=== PATIENT | female | born 1945 | race Caucasian/White ===

== ENCOUNTER 2017-04-20 12:15 | Inpatient (IN) | payer MEDICARE, MEDICAID ==
[2017-04-20] VITALS (10 sets, daily range): BP systolic 68–101; BP diastolic 33–71; PULSE 41–62; RESP 15–19; O2SAT 85–98
[~2017-04-20] VITALS: Ht 167.6 cm; Wt 61.4 kg
[~2017-04-20 12:15] MED LIST: CALC1CAP26 PO; Etomidate 2 mg/mL 20 mL Inj IV ONE; HYDR1TAB91 PO; MAGN250T29 PO; MULT-895 PO; Succinylcholine Chloride 20 mg/mL 5 mL Inj ONE; THI100 PO; ZLP5T PO
--- NOTE | 2017-04-20 12:23 | ED.REPORT ---
HPI-Overdose/Alcohol Toxicity Date of Service Apr 20, 2017 ED Provider: Alphonso Torres MD Pt is a 71 year old female with a history of seizures, COPD, and stroke who presents to the ED via EMS after overdosing on approximately 800 mg of Amlodipine around 11:00 today. Pt c/o associated nausea, but states that she feels nauseated chronically. She reports that she told her that she overdosed, who ended up calling EMS. The pt admits to suicidal ideation when she overdosed, stating "I just felt tired of being sick." Pt denies alcohol use and smoking within the past 4 months. Nursing Notes Stated Complaint: OVERDOSE Chief Complaint: Psychiatric Complaint Nursing Notes Reviewed: Yes Allergies: Coded Allergies: acetaminophen (Verified Allergy, Unknown, UNKNOWN (PT CURRENTLY TAKING) , 04/20/17) hydrocodone bitartrate (Verified Allergy, Unknown, UNKNOWN (PT CURRENTLY TAKING), 04/20/17) General Time Seen by Provider: 12:23 Chief Complaint Drug overdose Modifying Factors: Intentional Hx Obtained From: Patient, EMS Arrived By: Ambulance Onset Occurred: 1 - 4 hours ago (11:00) Symptom Duration: Since onset Severity: Current: No pain currently Severity: Maximum: No pain Recent Healthcare: No recent doctor visit, No recent hospitalization Similar Sx Previous: No Risk-Overdose/Alcohol Tox )( Suicide Risk Stratification No: Alcohol use, Substance abuse RF Statements: Risk factors reviewed Past Medical History Past Medical History Anxiety Pneumonia UTI Seizures Reports: Asthma, COPD, Stroke Past Surgical History ovarian surgery Reports: Appendectomy, Tonsillectomy Family History none reported Smoking History Former Smoker Social History Alcohol Use: Denies alcohol use Drug Use: Denies drug use Other Social History: Good social support, Ambulatory Status Independent Review of Systems Constitutional: Denies: Fever Respiratory: Denies: Shortness of breath Cardiovascular: Denies: Chest pain GI: Reports: Nausea, Denies: Abdominal pain Complete sys rev & neg: except as marked. Physical Exam Initial Vital Signs Vital Signs (First) Date Time Temp Pulse Resp B/P Pulse Ox O2 Delivery O2 Flow Rate FiO2 04/20/17 12:14 37 62 17 77/33 93 Room Air 04/20/17 13:01 2 Initial VS: Reviewed Head / Eyes: Atraumatic, Normocephalic Neck: Supple, Full range of motion Extremities: Vascular intact, Neuro intact Skin: Warm, Dry, No cyanosis General/Constitutional: Awake, Alert Respiratory / Chest: Atraumatic, Breath sounds NL, Breath sounds = bilat Cardiovascular: Regular rhythm, Heart sounds NL Heart Rate / Rhythm: Positive: Bradycardia Hypotensive Abdomen: Atraumatic, Soft, Non-tender Neurologic: Speech NL, CN II - XII intact Abnormal Mood/Affect: Positive: Depressed Withdrawn and suicidal. Interpretation & Diagnostics Lab Results Interpretation Result Diagram: 04/20/17 1210 04/20/17 1444 Test 04/20/17 12:10 04/20/17 14:00 04/20/17 14:44 White Blood Count 9.7th/mm3 (3.8-10.1) Red Blood Count 5.36mil/mm3 (3.90-5.20) Hemoglobin 16.3g/dL (12.0-15.6) Hematocrit 46.5% (35.0-46.0) Mean Corpuscular Volume 86.8fL (81-100) Mean Corpuscular Hemoglobin 30.4pg (27.0-35.0) Mean Corpuscular Hemoglobin Concent 35.1% (32.0-37.0) Red Cell Distribution Width 13.4% (12.3-15.4) Platelet Count 364bil/L (150-400) Magnesium Level 1.7mg/dL (1.6-2.6) Total Bilirubin 0.3mg/dL (0.0-1.2) Aspartate Amino Transf (AST/SGOT) 22U/L (0-50) Alanine Aminotransferase (ALT/SGPT) 13U/L (0-32) Alkaline Phosphatase 81U/L (25-165) Total Protein 8.4g/dL (6.4-8.4) Albumin 4.7g/dL (3.4-5.0) Digoxin Level < 0.3nG/mL (0.9-2.0) Salicylates Level 25.0ug/mL (30-250) Acetaminophen Level < 15.0ug/mL Rx (10-25) Alcohols < 10mg/dL (0-10) Sodium Level 133mEq/L (134-144) Chloride Level 96mEq/L (97-108) Carbon Dioxide Level 22mmol/L (18-29) Blood Urea Nitrogen 7mg/dL (8-27) Creatinine 1.08mg/dL (0.57-1.00) Estimat Glomerular Filtration Rate 71mL/min (>59) Glucose Level 197mg/dL (60-99) Calcium Level 10.7mg/dL (8.5-10.1) Potassium Level 2.9mEq/L (3.5-5.2) ECG Interpretation ECG Interpretation: Sinus bradycardia with a rate of 44 IRBBB and LPFB Time: 12:49 Interpreted by: ED physician Procedures Central Line Placement Central Line Placement Note: Initial blood sugar - 138 Time: 13:10 Procedure Performed by: ED physician Consent / Setup / Site Prep: Consent from patient, Time-out performed (13:22 ), Needle aspirate performed, Pulse oximeter applied, pvc monitor applied, Hand hygiene observed, Standard surgical scrub, Max barrier precaution, Sterile drapes applied, Position supine Skin Preparation Agent: Hibiclens - Chlorhexidine Local Anesthesia: Lidocaine 1% Side / Location / Ultrasound: Internal jugular right, Ultrasound assisted Catheter / Lumen / Technique: Triple lumen, Seldinger technique Central Line Tip Location: Cath tip good position in the SVC Post-Procedure / Complications: Antibiotic oint applied, Dressing placed, Tolerated procedure well, Patient stable Intubation Intubation Procedure: Blood pressure - 93/41 Time: 14:37 Procedure Performed by: ED physician Consent / Setup / Site Prep: No consent - emergent, Time-out performed, Oxygen administered, Pulse oximeter applied, pvc monitor applied, Hand hygiene observed, Stand sterile technique Patient Position: Sniff position Blade / ET Tube / Route: Orange scope, ET tube cuffed (7.5), Route: oral Procedural Sedation/Analgesia: Sedation: Etomidate (20 mg at 14:39) Neuromuscular Agent: Succinylcholine ET Confirmation: Direct visualization, BS equal, End tidal CO2 device, CXR Secured / Marked: ET tube device Complications: None Re-Eval/Medical Decision Med Decision/Clinical Course Upon arrival and understood immediately that this was a critical situation and that this woman was in grave danger from the overdose. Information from [facility] was a received prior to the patient's arrival as to how best to manage competitions associated with amlodipine overdose. Immediately we initiated calcium followed by insulin and glucose. Her potassium was somewhat low to begin with so we were careful to monitor her potassium levels frequently. I made it clear to her and her that though she was initially doing reasonably well, ago she took was exceedingly dangerous and it may very well be life ending. I consult the critical care team immediately they have been involved with the case specifically Dr. Maria, I also consult to Dr. Woo from cardiology to consider transcutaneous or temporary pacing as needed. I spoke with Dr. Inocente Burnett from [facility] who is the lithographic platemaker material liaison who recommended making sure that we were on high-dose insulin and a whole bowel irrigation with GoLYTELY antibiotic consider also a fat emulsion therapy as well. I relayed all this information Dr. Maria. He will be assuming primary care of the patient current time is 3: 26 PM. Source of Hx: Old records Re-Evaluation/Progress #1: Time of Eval: 12:31 Re-Evaluation/Progress Note: Informed pt of plan for treatment and admission. Pt understands and agrees with plan for treatment and admission. All questions addressed. Re-Evaluation/Progress #2: Time of Eval: 12:59 Re-Evaluation/Progress Note: Pt rechecked. Informed pt of plan for central line placement. Pt understands and agrees with plan for central line placement. All questions addressed. Re-Evaluation/Progress #3: Time of Eval: 13:49 Re-Evaluation/Progress Note: Pt rechecked. All questions addressed. Re-Evaluation/Progress #4: Time of Eval: 13:50 Re-Evaluation/Progress Note: Spoke with pt's over phone. Discussed pt's case, treatment, and plan for admission. All questions addressed. Re-Evaluation/Progress #5: Time of Eval: 14:29 Re-Evaluation/Progress Note: Pt rechecked. Code blue was called, but resolved shortly. Re-Evaluation/Progress #6: Time of Eval: 14:36 Re-Evaluation/Progress Note: Pt rechecked. Pt required intubation. Re-Evaluation/Progress #7: Time of Eval: 14:54 Re-Evaluation/Progress Note: Pt rechecked. Code blue was called as the pt was pulseless. Re-Evaluation/Progress #8: Time of Eval: 14:59 Re-Evaluation/Progress Note: Pt rechecked. CPR was still in progress and stopped at 2 minutes. Pt's pulse was checked and was present. Re-Evaluation/Progress #9: Time of Eval: 15:02 Re-Evaluation/Progress Note: Pt rechecked with Dr. Maria and Dr. Woo. Consultation #1: Referral / Consult Name: Keith Maria MD Consulted With: Hospitalist Call Returned at: 13:34 Corrugator: Will see patient, Agrees with eval, Agrees with plan, Accepts admit Note: Consulted with Dr. Maria. We discussed the pt's case in person. Consultation #2: Referral / Consult Name: Min Woo MD Consulted With: Cardiology Call Returned at: 15:56 Corrugator: Will see patient, Agrees with eval, Agrees with plan Consultation #3: Referral / Consult Name: Min Woo MD Consulted With: Cardiology Call Returned at: 15:02 Note: Discussed pt's case in person. Dr. Woo saw the pt at bedside. Counseled Regarding: Diagnosis, Lab results, Need for admission Discharge & Departure Impression: Primary Impression: Suicidal overdose Encounter type: initial encounter Qualified Code: T50.902A - Poisoning by unspecified drugs, medicaments and biological substances, intentional self-harm , initial encounter Disposition: ADMITTED TO HOSPITAL Discharge Condition All VS Reviewed: Yes Condition: Stable Referrals: Annalee Martinez (PCP) Crit Care Except Billable Proc Time Spent: 75-104 minutes Services Performed: Patient management by me, Time spent at bedside, Reviewing test results, Reviewing imaging, Discussing patient care, Documentation in record, Time with fam/surrogate Scribe Attestation Portions of this note were transcribed by Tatiana Lopez. I, Dr. Torres personally performed the history, physical exam and medical decision-making; I reviewed and confirmed the accuracy of the information in the transcribed note. Signed by: Hoonrio Iverson, 04/20/17. copies to: Annalee Martinez Kirk H MD Apr 20, 2017 12:23 Tatiana Marcus Apr 20, 2017 12:33
[2017-04-20] MEDS ORDERED: 0.9% Sodium Chloride 1,000 ML IV ONE (12:35)
[2017-04-20] MEDS ORDERED: Calcium Chl 10% 1 Gm/10 mL Syringe IVPUSH ONE (12:55)
[2017-04-20] MEDS ORDERED: D5W1/2NS 1,000 mL IV PRN (12:55)
[2017-04-20 12:59] LABS: Mean Corpuscular Hemoglobin 30.4 pg (27.0-35.0); Mean Corpuscular Volume 86.8 fL (81-100)
[2017-04-20] MEDS ORDERED: CALCIUM CHLORIDE IV ONE (13:00)
[2017-04-20] MEDS ORDERED: [UNRECOGNIZED DRUG - OTHER] IV ONE (13:00)
[2017-04-20] MEDS ORDERED: Insulin Human REGular 300 Unit/3 mL Inj IV ONE (13:00)
[2017-04-20] MEDS ORDERED: Ondansetron 2 mg/mL 2 mL Inj ONE (13:04)
[2017-04-20] MEDS: Insulin Human REGular 100 Units/100 mL NS IV SCH ×4 (13:30→17:07)
--- NOTE | 2017-04-20 13:54 | DRSVH ---
PROCEDURE: X-RAY CHEST ONE VIEW, PORTABLE ([id number]) INDICATIONS: post central line TECHNIQUE: One view of the chest was acquired. COMPARISON: [facility], CR, XR CHEST 2VW, 11/27/2015, 14:30. FINDINGS: Surgical changes and devices: Gasless placement of right central venous catheter with the tip project ing in the lower SVC Lungs and pleura: No pleural effusions or pneumothorax. Lungs are clear. Diffuse scarring/atelectas is. Mediastinum: Mediastinal contours appear normal. Heart size is normal. Bones and chest wall: No suspicious bony lesions. Overlying soft tissues appear unremarkable. Mult iple chronic right rib fractures. IMPRESSION: Status post placement of right internal jugular central venous catheter with the tip projecting in th e lower SVC. No pneumothorax. Dictated by: Darwin Washington M.D. on 04/20/2017 at 12:50 Approved by: Darwin Washington M.D. on 04/20/2017 at 12:53
[2017-04-20] MEDS ORDERED: KCl 40 mEq/D5W 500 mL 40 MEQ in IV Premix 1 EACH IV STA (13:59)
[2017-04-20] MEDS ORDERED: Alum-Mag Hydrox-Simeth 30 mL Suspension PO PRN (14:00)
[2017-04-20] MEDS ORDERED: Senna-Docusate 8.6-50 mg Tablet PO PRN (14:00)
[2017-04-20] MEDS ORDERED: Polyethylene Glycol (PEG) 17 Gm Powder PO PRN (14:00)
[2017-04-20] MEDS ORDERED: Ondansetron 2 mg/mL 2 mL Inj IVPUSH PRN (14:00)
[2017-04-20] MEDS ORDERED: Potassium Chloride Inj 30 MEQ in Dextrose 5% 100 ML IV ONE (14:05)
[2017-04-20] MEDS ORDERED: [UNRECOGNIZED DRUG - OTHER] IV SCH (14:50)
[2017-04-20] MEDS ORDERED: LORAZEPAM IV SCH (14:50)
[2017-04-20] MEDS ORDERED: LORazepam 100 mg/100 mL NS 100 MG in IV Premix 1 EACH IV SCH (14:55)
[2017-04-20] MEDS: Norepinephrine 8,000 mCg/250 mL D5W Premix IV SCH ×4 (15:05→23:05)
[2017-04-20] MEDS: LORazepam Inj 100 MG in 0.9% Sodium Chloride 50 ML IV SCH (15:06)
[2017-04-20] MEDS ORDERED: Glucagon 1 mg/mL Inj ONE (15:10)
[2017-04-20] MEDS ORDERED: Succinylcholine Chloride 20 mg/mL 5 mL Inj ONE (15:10)
[2017-04-20] MEDS ORDERED: Etomidate 2 mg/mL 20 mL Inj IV ONE ×2 (15:10→16:25)
[2017-04-20] MEDS ORDERED: MULT-1065 PO (15:21)
[2017-04-20] MEDS ORDERED: LACO200T2 PO (15:21)
[2017-04-20] MEDS ORDERED: AMLO10TA3 PO (15:21)
[2017-04-20] MEDS ORDERED: ALBU18HF INH (15:21)
[2017-04-20] MEDS ORDERED: CARV25TA2 PO (15:21)
[2017-04-20] MEDS ORDERED: IBAN150T8 PO (15:21)
[2017-04-20] MEDS ORDERED: ASPI325T32 PO (15:21)
[2017-04-20] MEDS ORDERED: LEVE500T3 PO (15:21)
[2017-04-20] MEDS ORDERED: ATRINH INH (15:21)
[2017-04-20] MEDS ORDERED: DOPamine 800 mg/250 mL D5W Premix IV ONE (15:29)
[2017-04-20] MEDS ORDERED: PEG/Electrolytes 4,000 mL Solution PO ONE (15:30)
[2017-04-20] MEDS ORDERED: [UNRECOGNIZED DRUG - OTHER] IV ONE (15:50)
[2017-04-20] MEDS ORDERED: Glucagon 1 mg/mL Inj IV ONE (16:20)
[2017-04-20] MEDS ORDERED: Succinylcholine Chloride 20 mg/mL 5 mL Inj IVPUSH ONE (16:25)
[2017-04-20] MEDS ORDERED: PEG/Electrolytes 4,000 mL Solution TUBE ONE (16:25)
--- NOTE | 2017-04-20 17:34 | PCM.CHPMED ---
Subjective Date of Service: Apr 20, 2017 Primary Physician: Admitting Physician: Keith Maria MD Primary Care Physician: Annalee Martinez Attending Physician: Keith Maria MD Admit Status: From the Emergency Department, Admit to [facility] Team, Critical Care Chief Complaint: Chief Complaint: Reason for consult: hemodynamic instability History of Present Illness: Pulmonology Critical Care Consultation: Alaina Vega is a 71 year old female with a history of focal epilepsy, COPD, and stroke who was sent to the ED via EMS after overdosing on approximately 800 mg of Amlodipine around 11:00 am today. Patient is intubated and obtunded so history was obtained through her . According to her , patient was drinking coffee in the garden before she walked to him and stated that "I took all my pills." She then handed him an empty bottle of Amlodipine, which was recently refilled per the . The patient did not complain of any symptoms at that point, but her her was concerned so he called EMS. Patient does not have any history of anxiety or depression. Her denies any attempted suicide in the past or suicidal ideation recently. However, he notes that the patient has been upset that she cannot longer drive due to her seizure disorder. Her seizure seems to be uncontrolled with intermittent "small seizure " every 3 weeks with the last one a week ago. This usually involves shaking in her hands and are not associated with loss of consciousness. She is currently on Levetiracetem and Lacosamide for the seizure disorder. Patient's reports that she has not been smoking or drinking for the last 3-4 months. Upon arrival to the ED, patient was given calcium followed by insulin and glucose per recommendation from [facility]. Dr. Inocente Burnett from [facility] who is the microbiology technician operations expert who recommended to sure to use high-dose insulin and a whole bowel irrigation with GoLYTELY and charcoal. Her potassium was low and continued to trend down, currently at 2.9. Patient coded twice in the ER due to PEA with ROSC after CPR. She was intubated to protect her airway. Dr. Woo from cardiology was also consulted to consider transcutaneous or temporary pacing as needed. Her heart rate remains in the low 40s with hypotension MAP in the 50s. Patient was started on Norepinephrine and Dobutamine for pressure support. Recent labs reveal lactic acid 5.3, potassium 2.9, magnesium 1.7. Normal CBC and CXR. By the time the patient arrived to the floor, her heart rate decreased down to low 30s and thus a dose of Atropin 1mg IV was given. EKG at 1618 showed a sinus rhythm at 74 with incomplete right bundle-branch block and right axis deviation. Review of Systems: Unable to obtain due to the patient's condition. 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 Essential hypertension Chronic encephalopathy Vitamin B deficiency Late effect stroke Bedside Blood Glucose: 134 Surgical History Per history :ovarian surgery, Appendectomy, Tonsillectomy Home Medications Per [facility] Medication Name Directions amlodipine 5 mg tablet take 1 tablet by oral route every day aspirin 325 mg tablet,delayed release take 1 tablet by oral route every day Atrovent HFA 17 mcg/actuation aerosol inhaler inhale 2 puff by inhalation route 4 times every day CARVEDILOL 25 MG TABLET TAKE ONE TABLET BY MOUTH TWICE A DAY WITH FOOD Centrum Ultra Women's 18 mg-400 mcg Tab take 1 tablet by oral route every day with food Durable Medical Equipment ibandronate 150 mg tablet take 1 tablet by oral route every month on the same date; Take with a full glass of water and remain in an upright position for at least 60 minutes. KEPPRA 500 MG TABLET TAKE TWO TABLETS BY MOUTH TWICE A DAY potassium citrate ER 10 mEq (1,080 mg) tablet,extended release take 1 tablet by oral route every day with food. tramadol 50 mg tablet take 1 Tablet by ORAL route every 6 hours as needed VENTOLIN HFA 90 MCG INHALER INHALE TWO PUFFS BY MOUTH EVERY 4 TO 6 HOURS NEEDED FOR SHORTNESS OF BREATH VIMPAT 200 MG TABLET TAKE ONE TABLET (200MG) BY MOUTH TWICE A DAY Allergies: Coded Allergies: acetaminophen (Verified Allergy, Unknown, UNKNOWN (PT CURRENTLY TAKING) , 04/20/17) hydrocodone bitartrate (Verified Allergy, Unknown, UNKNOWN (PT CURRENTLY TAKING), 04/20/17) Family History Family History Patient's denies any known family history. Social History Hx Alcohol Use: Yes (LONG HX OF ETOH ABUSE, reports no drink for the past 4 months)Hx Substance Use: Yes (nothing other than alcohol)Hx Tobacco Use : No (trying to quit with nicotine patch/INTERMITTANTLY/quit smoking 3-4 months ago) Smoking Status: Former Smoker Living Arrangement: with Family Exam Vital Signs Vital Sign - Last Date Time Temp Pulse Resp B/P Pulse Ox O2 Delivery O2 Flow Rate FiO2 04/20/17 13:12 41 16 94/35 95 Nasal Cannula 2 04/20/17 12:14 37 Additional Information: General: chronically-ill appearance, intubated and obtunded. Head: Normocephalic, atraumatic. External ears without defect. Eyes: Pupils dilated, sluggish reaction to light. Anicteric sclerae, conjunctivae moist. Mouth: ET and OG tube in place. Cardiovascular: Bradycardia with regular rhythm. No murmurs, rubs, or gallops appreciated. Weak radial pulses. Pulmonary: Coarse breath sounds with no rales, wheezes, or rhonchi. Abdomen: Bowel tones present. Soft, nondistended, no apparent tenderness. Extremities: No clubbing, cyanosis, or edema. Skin: extremities are warm to touch, normal turgor and texture; no rash, ulcers , or subcutaneous nodules appreciated. Neurological: Unable to assess due to being intubated. No clonus. Lab and Diagnostics Result Diagram: 04/20/17 1210 04/20/17 1444 X-Rays, CTs and MRIs PROCEDURE: X-RAY CHEST ONE VIEW, PORTABLE Status post placement of right internal jugular central venous catheter with the tip projecting in the lower SVC. No pneumothorax. Dictated by: Darwin Washington M.D. on 04/20/2017 at 12:50 Assessment & Plan Assessment 71 year old female with a history of focal epilepsy, COPD, and stroke who was sent to the ED via EMS after overdosing on approximately 800 mg of Amlodipine and was intubated secondary to hemodynamic instability. Distributive shock secondary to severe Amlodipine toxicity, present on admission , active. -Patient presents with severe bradycardia and hypotension. -High dose insulin and dextrose ggt started in the ED. Will continue with the insulin drip and dextrose. -Serial BMP Q4 hours. -Per [facility]'s recommendation, Calcium Chloride is preferred. Will monitor Ca level and repeat Calcium Chloride boluses as needed. -Continue vasopressors with Norepi and Dopamine; will add Vasopressin to maximize blood pressure control. -Fentanyl IV pushes [id number] PRN agitation. -Atropine is rarely effective in serious poisoning, but can use as needed for severe bradycardia. Patient received one dose of 1mg IV and it was effective. -Patient received activated charcoal in the ED, but it was mostly suctioned out during intubation. Will attempt another gastric lavage now that patient is intubated. -Amlodipine half-life is about 30-50 hours, thus patient will need to be monitor closely in the next 48 hours. Cardiac arrest s/p resuscitation present on admission, now intubated. -Secondary to intentional amlodipine overdose. -Oxygenation and ventilation are appropriate on current vent settings. Continue with the current vent setting to maintain SpO2 >/= 93%. ABG pending. -Will need to contact cardiology for transcutaneous pacing if bradycardia worsens. Consent signed by the patient's in the chart. Hypokalemia, present on admission, active. -closely monitor potassium level on insulin drip. -Replete as needed. Keep Potassium >4 and Mg >2 Lactic acidosis, present on admission, active. -continue IVF and trend Lactate Focal epilepsy, chronic, presume stable. -Patient is currently on Lorazepam ggt. -will consider resuming her home Keppra and Vimpat tomorrow. Severe depression with suicidal attempt, present on admission, active. 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 Patient is on Famotidine for GI prophylaxis and Heparin for DVT prophylaxis. Problems: Pain Evaluation: Adequate Pain Control GI Prophylaxis: H2 blake VTE Prophylaxis: Sub-Q Heparin (Unfractionated) Resuscitation Status: CPR: Attempt Resuscitation Attending Statement I have seen and examined this patient with the resident physician. Vital signs , labs, imaging have been reviewed. I agree with the assessment and plan above. Please refer to my separately dictated progress note for any modifications to above. Corie Hardin M.D. Pulmonary and Critical Care medicine Pager [phone] Grabiel Mckeon DO Apr 20, 2017 16:31 Corie Hardin MD Apr 21, 2017 16:05
[2017-04-20 18:02] LABS: APPEARANCE,URINE CLEAR (CLEAR,HAZY); COLOR,URINE YELLOW (YELLOW)
[2017-04-20 18:03] LABS: OCCULT BLOOD,URINE SMALL (NEGATIVE); UROBILINOGEN,URINE NORMAL (NORMAL)
[2017-04-20] MEDS ORDERED: Calcium Chl 10% (Gm) Inj 2 GM in Dextrose 5% 250 ML IV ONE (18:15)
[2017-04-20] MEDS ORDERED: fentaNYL-PF 50 mCg/mL 2 mL Inj IVPUSH PRN (18:15)
[2017-04-20] MEDS: Heparin 5,000 Unit/mL Inj SUBQ SCH (18:21)
--- NOTE | 2017-04-20 18:21 | ABG ---
DateTimeAnalyzed 18:11:00 -_ pH ____7.345 - 7.350 7.450 pCO2 ___25.4__ -mmHg 35.0 45.0 pO2 153 -mmHg 69.0 116 HCO3- ___13.5__ -mmol/L 22.0 26.0 ABE __-10.3__ -mmol/L -2.0 2.0 tHb ___13.7__ -g/dL 12.0 18.0 O2Hb ___97.5__ -% COHb ____0.5__ -% 0.0 1.5 MetHb ____0.8__ -% 0.4 1.5 sO2 ___98.8__ -% FIO2 ___40.0__ -% PRVC 15 - PEEP ____5.0__ -cmH2O Vt __500.0__ -L Drawn By gj - Date/Time Notified____ 18:21:00 -_ Spontaneous_RR ___15.0__ -b/min Oxygen Device 1 VENTILATOR - Notified By gj - Notified Whom ___PARIMI - B 758 -mmHg tO2 ___19.0__ -Vol% Dougie test N/A -
--- NOTE | 2017-04-20 18:40 | PCM.PROC ---
Procedure Note Date of Service: Apr 20, 2017 Pre Procedure Diagnosis: Distributive shock due to Amlodipine overdose Post Procedure Diagnosis: Distributive shock due to Amlodipine overdose Procedure: Right radial arterial line placement Provider and Hairspring Setter: Haily Alcantara D.O. Indication for Procedure: Need for continuous blood pressure monitoring given distributive shock requiring intravenous pressor support Procedural Analgesia: 2 mL's of 1% lidocaine Procedure Details: A time-out was completed verifying correct patient, procedure, site, positioning , and special equipment if applicable. Allens test was performed bilaterally in both right and left upper extremities to ensure adequate perfusion. The patients left wrist was prepped with 1mL of 1 percent lidocaine to anesthetize the subcutaneous tissue and draped in sterile fashion. Under ultrasound guidance a 20G Arrow arterial line was introduced into the left wrist by Dr. Alcantara however no noted blood return through the catheter. Dr. Hardin took over the radial arterial line procedure and under ultrasound guidance a 20G Arrow arterial line was introduced into the left wrist with arterial blood flow however the arterial line catheter wire was unable to be threaded, the catheter was withdrawn and pressure was held for 5 minutes to ensure adequate time for hemostasis over the puncture site. The patients right wrist was then prepped with 1mL of 1 percent lidocaine to anesthetize the subcutaneous tissue and then draped in sterile fashion. Under ultrasound guidance a 20G Arrow arterial line was introduced into the right radial artery. The catheter was threaded over the guide wire and the needle was removed with appropriate pulsatile blood return. The catheter was then secured in place to the skin with a sterile Tegaderm arterial line dressing applied. Perfusion to the extremity distal to the point of catheter insertion was checked and found to be adequate. Dr. Hardin and Dr. Alcantara were present for the entire procedure. Estimated Blood Loss: 10mL The patient tolerated the procedure well and there were no complications. Post Procedure Plan: Continue pressor support with dopamine and norepinephrine, with consideration to add vasopressin Attending Statement Procedure: Right radial artery catheter placement under ultrasound guidance Indication: Hypotension and respiratory failure Date of service: 04/20/17 I was present for the entire procedure. Corie Hardin M.D. Pulmonary and Critical Care medicine Pager [phone] Johnson Alcantara DO Apr 20, 2017 18:40 Corie Hardin MD Apr 21, 2017 16:06
--- NOTE | 2017-04-20 19:03 | PCM.PROC ---
Procedure Note Date of Service: Apr 20, 2017 Pre Procedure Diagnosis: Distributive shock secondary to amlodipine overdose Post Procedure Diagnosis: Distributive shock secondary to amlodipine overdose Procedure: Endotracheal Intubation Provider and Shuttleless Loom Weaver: Dr. Melissa Alcantara Indication for Procedure: Cardiac arrest leading to inability to protect airway Procedural Analgesia: None Procedure Details: The patient was placed in a flat position. Sedation was obtained using Etomidate 20mg and paralysis was obtained with succinylcholine 100mg. The patient was easily ventilated using an ambu bag. The a GLIDESCOPE was used and inserted into the oropharynx at which time there was a clear view of the vocal cords. A 7.5-kittitian endotracheal tube was inserted and visualized going through the vocal cords. The stylette was removed. Breath sounds were heard in both lung jackson equally. The endotracheal tube was placed at 23 cm, measured at the teeth. Dr. Torres and Dr. Alcantara was present for the entire procedure. A chest x-ray was ordered to assess for pneumothorax and verify endotrachealtube placement. Estimated Blood Loss: 0mL The patient tolerated the procedure well and there were no complications. Post Procedure Plan: Sedated and ventilated the patient while maintaining blood pressure with intravenous pressor support Johnson Alcantara DO Apr 20, 2017 19:03
--- NOTE | 2017-04-20 19:17 | PCM.HPMED ---
Subjective Date of Service Apr 20, 2017 Primary Provider: Admitting Physician: Keith Maria MD Primary Care Physician: Annalee Martinez Attending Physician: Keith Maria MD Admit Status: From the Emergency Department Chief Complaint: Amlodipine overdose due to intentional suicide attempt History of Present Illness: Alaina Vega is a 71 year old female with a history of focal epilepsy, COPD, and stroke who presented to [facility] ED via EMS after intentionally overdosing on approximately 800 mg of Amlodipine around 11:00 am today. The patient was initially seen in the room and rapidly decompensated into a bradycardic arrhythmia leading to cardiac arrest and subsequent cardiopulmonary resuscitation with the Patient intubated and sedated on significant pressor support. The history was obtained through the ED physician's patient interview as well as her by the ICU resident. According to both the ED doctor as well as the the patient was having a normal morning drinking coffee in the garden when she walked up to the and told him that she intentionally took a full bottle of amlodipine that had recently been refilled because she was "tired of being sick." According to the the patient was not having any unusual symptoms however due to concern the patient's called EMS to have her transported to the [facility]. According to the the patient has a history of anxiety and depression however the denies any attempted suicide in the past or any recent suicidal ideation. 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 The describes the seizures as localized to her hands without loss of consciousness and typically occur every 3 weeks with the last one approximately one week ago. The patient is currently prescribed Keppra and Vimpat for her seizure disorder. Per the 's report the patient had recently stopped both smoking and drinking alcohol approximately 3-4 months ago. The patient has a history of chronic alcohol abuse prior to that. Per the ED physicians note he contacted [place] poison control and specifically Dr. Inocente Burnett a grinding operator and was guided to initiate IV insulin therapy with IV dextrose as well as IV calcium chloride. The patient was able to take activated charcoal and an attempt blind the undigested amlodipine. Patient coded twice in the ER due to PEA with noted bradycardic arrhythmia with ROSC after CPR. Given the bradycardic arrhythmia the insulin was briefly held while IV potassium chloride was being infused. She was intubated to protect her airway. Her potassium was initially mildly low and continued to trend down to 2.9. After the patient vomited a significant portion of the activated charcoal. In an attempt to stabilize the patient for transfer to ICU given the patient's emesis and OG was placed and the remaining gastric charcoal with suction. A whole bowel lavage was attempted with GoLYTELY. Dr. Woo from cardiology was also consulted to consider transcutaneous or temporary pacing as needed. Her heart rate remains in the low 40s with hypotension MAP in the 50s. Patient was started on Norepinephrine and Dobutamine for pressure support, with diecast machine operator Dr Hardin recommending to initiate vasopressin drip. On arrival to the ICU patient's heart rate decreased down to low 30s and thus a dose of Atropin 1mg IV was given. EKG at 1618 showed a sinus rhythm at 74 with incomplete right bundle-branch block and right axis deviation. Review of Systems: No review of systems was able to be obtained due to patient condition. Allergies Coded Allergies: acetaminophen (Verified Allergy, Unknown, UNKNOWN (PT CURRENTLY TAKING) , 04/20/17) hydrocodone bitartrate (Verified Allergy, Unknown, UNKNOWN (PT CURRENTLY TAKING), 04/20/17) Home Medications Amlodipine 5 mg daily Aspirin 325 mg taken daily Atrovent 2 puffs by inhalation up to 4 times every day Carvedilol 25 mg tablet taken twice a day Keppra 1000 mg twice a day Potassium citrate ER 10 mEq daily Tramadol 50 mg tablet every 6 hours Ventolin HFA inhaled 2 puffs by mouth every 4-6 hours as needed for shortness of breath Vimpat 200 mg tablet take 1 tablet by mouth twice a day Ibandronate 150 mg taken once monthly PMH Carotid artery stenosis 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 Patient's denies any known family history. Social History Occupation: not working Hx Alcohol Use: Yes (reports quit in December 2016) Hx Substance Use: No (nothing other than alcohol) Hx Tobacco Use: Yes (trying to quit with nicotine patch/INTERMITTANTLY/quit smoking 3-4 months ago) Smoking Status: Former Smoker Years of Smokin Living Arrangement: with Family Exam Vital Signs Vital Sign - Last Date Time Temp Pulse Resp B/P Pulse Ox O2 Delivery O2 Flow Rate FiO2 04/20/17 13:12 41 16 94/35 95 Nasal Cannula 2 04/20/17 12:14 37 Exam General: Chronically ill-appearing elderly female initially alert and cooperative however rapidly deteriorated with multiple cardiac arrests leading to emergent resuscitation and intubation within 3 minutes of entering the room Eyes: Pupils equal round and reactive to light, anicteric sclera, noninjected conjunctiva HENT: Normocephalic atraumatic, moist mucous membranes without central cyanosis , oropharynx clear without purulent exudate and kaleidoscope exam prior to ET tube placement poor dentition noted Neck: Supple, trachea midline, without thyromegaly or JVD Cardiovascular: Irregularly irregular rate and rhythm with severe noted bradycardia, S1-S2 present, without murmurs rubs or gallops noted Lungs: Clear to auscultation bilaterally without wheezing rales or rhonchi Abdomen: Soft, nondistended, tympanic to percussion, normal active bowel sounds , without organomegaly Extremities: No cyanosis clubbing or edema noted, pulses intact bilaterally at dorsalis pedis and radial : Lopez catheter in place Skin: Cool and dry Neuro: Nonfocal neurologic exam on initial impression, unable to assess after deterioration Psych: Flat affect and depressed mood initially unable to assess at deterioration Lab and Diagnostics Result Diagram: 04/20/17 1210 04/20/17 1444 X-Rays, CTs and MRIs X-RAY CHEST ONE VIEW, PORTABLE IMPRESSION:Status post placement of right internal jugular central venous catheter with the tip projecting in the lower SVC. No pneumothorax. Approved by: Darwin Washington M.D. on 04/20/2017 at 12:53 Assessment & Plan Alaina Vega is a 71 year old female with a history of focal epilepsy, COPD, and stroke who presented to [facility] ED via EMS after intentionally overdosing on approximately 800 mg of Amlodipine around 11:00 am today. Severe amlodipine toxicity secondary to Intentional overdose - Amlodipine 800 mg taken at Approximately 11 AM - In the ED the patient was given IV calcium chloride as well as started on IV insulin and dextrose per recommendations from [place] poison control, and a central line was placed given expected difficulty controlling both blood pressure and heart rate - The patient was given a dose of activated charcoal and attempt to bind undigested amlodipine - In the ED the patient acutely decompensated requiring ACLS resuscitation with CPR and endotracheal intubation with spontaneous return of circulation regained 2 - Given EMERGENCY MEDCL EMT with noted bradycardia arrhythmia and labs consistent with mild hypokalemia prior to initiating IV insulin, insulin was held temporarily wall IV potassium was started - 2 dose of glucagon given - The patient was initially placed on a norepinephrine drip which was continued until admitted into the ICU - Given the significant issues with bradycardia Dr. Woo of cardiology was consulted for possible transvenous pacing and after lengthy discussion the patient was instead placed on a dopamine drip with significant improvement in both pressure and heart rate - The patient remains hypotensive while on max dose norepinephrine and moderate doses of dopamine, after extensive discussion with diecast machine operator Dr. Hardin, the patient was continued on both norepinephrine and dopamine with the addition of vasopressin - Whole bowel lavage with GoLYTELY and an attempt to speed along the expulsion of undigested amlodipine - Continue insulin drip and dextrose - 1 dose of atropine given with significant improvement in heart rate, atropine available when necessary as well as glucagon - Consideration for lipid emulsion therapy with any further deterioration in blood pressure, however once this is initiated no further lab evaluation will be accurate so this will be held - Fentanyl IV pushes every 15 minutes when necessary for agitation - Lorazepam drip for both sedation and seizure prophylaxis given patient history - The patient's prognosis is guarded however psychiatry will be consulted if she makes it through the ICU stay History of partial seizures - Patient takes Vimpat 200 mg twice daily as well as Keppra 1000 mg twice daily - Currently holding both outpatient medications - Lorazepam drip for sedation should help with seizure prophylaxis DVT prophylaxis: Heparin 5000 units 3 times a day GI prophylaxis: Famotidine IV twice a day CODE STATUS is full this was discussed with the patient's given her tenuous prognosis The patient was admitted to the ICU with expected length of stay greater than 2 midnights given presenting symptoms, likely diagnosis, possible complications, and required treatments expected. Pain Evaluation: Adequate Pain Control GI Prophylaxis: H2 blake VTE Prophylaxis: Sub-Q Heparin (Unfractionated) Resuscitation Status: CPR: Attempt Resuscitation Attending Statement Greater than 30 minutes of critical care time provided. The patient was seen and examined together with Dr. Alcantara on 04/20/2017 and I agree with the history, exam and plan as outlined in the note above. . Johnson Alcantara DO Apr 20, 2017 19:17 Keith Maria MD Apr 22, 2017 16:13
--- NOTE | 2017-04-20 19:18 | NUR ---
Admit Patient brought to floor from ED around 1630 on Ventilator at 40%. On Dopamine, Norepinephrine, Potassium, Ativan, NS drips. Upon arrival to unit, an insulin gtt was started at 0.5 u/kg/hr as ordered. With decreasing BP, Dopamine was increased from 10 mcgs to 15 and then 20. Vasopressin ordered, but not received until change of shift. Noc shift RN to start. Maps running in the 50s at change of shift. Colyte prep being lavaged into OGT as per MD orders. No stool upon shift change. Blood sugars 227 and then 254. Ativan gtt increased to 4 mg/hr due to continued wakening by patient during arterial line placement. Also gave 2 mg Versed during art line placement>> patient waking and moving. Minimal UOP, unmeasurable. MD aware. Tele SB-SR. Gave one dose of atropine for severe bradycardia once arrived onto unit. Patient with crash cart pads attached in the event of a code. Report to noc shift RN bedside rounding done.
[2017-04-20] MEDS: Vasopressin Inj 20 UNIT in 0.9% Sodium Chloride 100 ML IV SCH ×2 (19:29→20:12)
--- NOTE | 2017-04-20 19:31 | DRSVH ---
PROCEDURE: X-RAY CHEST ONE VIEW, PORTABLE ([id number]) INDICATIONS: post intubation TECHNIQUE: One view of the chest was acquired. COMPARISON: [facility], CR, XR CHEST 1VW (PORTABLE), 04/20/2017, 13:28. FINDINGS: Surgical changes and devices: Right central venous catheter is unchanged. Endotracheal tube is placed with distal tip approximately 1.5 cm superior to the trey. Nasogastric tube is present with distal tip projecting below the left hemidiaphragm. Lungs and pleura: An overall appearance of increased pulmonary vascularity is present. Mediastinum: Mediastinal contours appear normal. Heart size is normal. Bones and chest wall: No suspicious bony lesions. Overlying soft tissues appear unremarkable. IMPRESSION: Support lines as above. Mild increased pulmonary vascularity suggestive of edema. Dictated by: Lilo Stapleton M.D. on 04/20/2017 at 19:29 Approved by: Lilo Stapleton M.D. on 04/20/2017 at 19:30
[2017-04-20 20:21] LABS: Magnesium 1.2 mg/dL (1.6-2.6)
[2017-04-20] MEDS ORDERED: Potassium Phos (mEq) Inj 40 MEQ in Dextrose 5% 500 ML IV ONE (20:25)
[2017-04-20] MEDS ORDERED: Magnesium Sulf 4 Gm/100 mL H2O 4 GM in IV Premix 1 EACH IV ONE (20:25)
--- NOTE | 2017-04-20 20:33 | ABG ---
DateTimeAnalyzed 20:24:30 -_ pH ____7.271 - 7.350 7.450 pCO2 ___30.1__ -mmHg 35.0 45.0 pO2 106 -mmHg 69.0 116 HCO3- ___13.9__ -mmol/L 22.0 26.0 ABE __-11.9__ -mmol/L -2.0 2.0 tHb ___13.5__ -g/dL 12.0 18.0 O2Hb ___96.9__ -% COHb ____1.8__ -% 0.0 1.5 MetHb ____0.0__ -% 0.4 1.5 sO2 ___98.5__ -% FIO2 ___30.0__ -% PRVC 15 - PEEP ____5.0__ -cmH2O Vt __500.0__ -L Drawn By AF - Date/Time Notified____ 20:33:00 -_ Spontaneous_RR 15 -b/min Oxygen Device 1 VENTILATOR - Notified By AF - Notified Whom ___Dr. Fuimaono - K+ ____3.9__ -mmol/L 3.5 5.0 tO2 ___18.4__ -Vol% OrderingPhysicianInitials mf - Dougie test N/A -
[2017-04-20] MEDS ORDERED: [UNRECOGNIZED DRUG - OTHER] IV PRN (20:50)
[2017-04-20] MEDS ORDERED: Piperacillin-Tazo 3.375 Gm Inj 3.375 GM in Dextrose 5% Minibag Plus 50 ML IV ONE (21:15)
[2017-04-20] MEDS: Famotidine Inj 50 ML IV SCH (21:57)
--- NOTE | 2017-04-20 23:37 | PCM.PROC ---
Procedure Note Date of Service: Apr 20, 2017 Pre Procedure Diagnosis: Toxic encephalopathy due to amlodipine overdose Post Procedure Diagnosis: as above Procedure: Re-intubation Provider and Friend Of The Court: Dr. Jacob Vazquez Indication for Procedure: RT was unable to pass the suction catheter through the old ET tube apparatus post voluminous emesis, thus it was thought there must be a kink of obstruction in her ET tube and that it should be replaced. Procedural Analgesia: Fentanyl Lorazepam Succinyl choline Procedure Details: The patient was positioned in the sniff position with providers at the head of the bed and RT on hand for bag ventilation. Succinylcholine was administered to achieve pre procedural paralysis, a bougie was passed through the previous ET tube which was subsequently withdrawn over the bougie. However, attempts to pass a replacement ET tube were met with resistance such that the attempt had to be abandoned and bag mask ventilation re-initiated. The entire old ET tube and bougie were removed for better visualization and the patient was again positioned in the Sniff position with RT on hand to bag ventilate. A straight laryngoscope was utilized to establish visualization of the vocal cords, and a 7 italian ET tube was passed without difficulty past the cords. The balloon was then inflated and the tube was set to 22 cm measured at the teeth and secured in place by RT. Symmetrical chest rise was observed and the patient was oxygenating well post procedurally. Giovanny Vazquez DO Apr 20, 2017 23:37
[2017-04-21] VITALS (11 sets, daily range): BP systolic 67–115; BP diastolic 41–62; PULSE 48–70; RESP 15–18; O2SAT 95–100
[2017-04-21] MEDS: Heparin 5,000 Unit/mL Inj SUBQ SCH ×3 (00:01→16:54)
[2017-04-21] MEDS: Vasopressin Inj 20 UNIT in 0.9% Sodium Chloride 100 ML IV SCH ×2 (00:17→21:22)
[2017-04-21] MEDS: Insulin Human REGular 100 Units/100 mL NS IV SCH ×24 (00:18→21:24)
[2017-04-21] MEDS: 0.9% Sodium Chloride 1,000 ML IV SCH ×3 (00:21→07:52)
[2017-04-21] MEDS: Chlorhexidine 0.12% 15 mL Oral Solution MUC_MEMBRM SCH ×6 (00:23→20:28)
[2017-04-21] MEDS: Norepinephrine 8,000 mCg/250 mL D5W Premix IV SCH ×4 (02:01→19:32)
--- NOTE | 2017-04-21 04:54 | NUR ---
P) Cardiac/Respiratory/GI/ Pt. sedated lightly and on 3 pressors, cardiac rhythm bradycardic initially with what appeared to be a 3rd degree block, now appears to be a 1st degree with P wave buried in T wave. Multifocal PVC's, rate consistently in the 50's, peripheral pulses remain weak with some mottling of her feet. Extremeties cool to touch. Lungs with coarse breath sounds, decreases bilat. unable to pass suction catheter through ET tube after pt. vomited, ET tube replaced by Dr. Garber. Per above I had been giving pt. go-lyte prep through OG, she had hypoactive bowel tones and vomited a large amount of clear fluid with charcoal specks, GI prep discontinued per Dr. Vazquez and pt. put on continuous suction via OG, 600ml out right away. Pt. also had a minimal amount of dark juan urine initially, once blood pressure stabilized with MAP over 60 urine output increased dramatically. I) Meds and labs per 's orders, turning 2h and floating heels. E) Currently resting quietly with eyes closed, wakes easily.
[2017-04-21 04:55] LABS: Magnesium 1.4 mg/dL (1.6-2.6)
[2017-04-21] MEDS ORDERED: Magnesium Sulf 4 Gm/100 mL H2O 4 GM in IV Premix 1 EACH IV ONE (05:10)
[2017-04-21] MEDS ORDERED: KCl 40 mEq/100 mL (CENTRAL) 40 MEQ in IV Premix 1 EACH IV ONE (05:10)
[2017-04-21] MEDS ORDERED: Potassium Phos (mEq) Inj 40 MEQ in Dextrose 5% 500 ML IV ONE (05:10)
[2017-04-21] MEDS: Piperacillin-Tazo 3.375 Gm Inj 3.375 GM in Dextrose 5% Minibag Plus 50 ML IV SCH ×2 (05:49→15:19)
[2017-04-21 07:11] LABS: BASOPHILS % (AUTO) 0.2 % (0-3); EOSINOPHILS % (AUTO) 0.3 % (0-5); MONOCYTES % (AUTO) 5.5 % (4-12); Mean Corpuscular Hemoglobin 30.8 pg (27.0-35.0); NEUTROPHILS % (AUTO) 82.6 % (40-74); Platelet Count 311 bil/L (150-400)
--- NOTE | 2017-04-21 07:12 | NUR ---
P) Jewelry Pt.'s rings removed as her hands were swelling, 4 rings, one with a stone missing, removed and placed in safe.
--- NOTE | 2017-04-21 08:06 | PCM.PNMED ---
Subjective Date of Service Apr 21, 2017 Subjective Pulmonology Critical Care Progress Note: Alaina Vega is a 71 year old female with a history of focal epilepsy, COPD, and stroke who was sent to the ED via EMS after overdosing on approximately 800 mg of Amlodipine around 11:00 am on 04/20/17. She was initially asymptomatic, but then developed cardiac arrest in the ER with ROSC after CPR. She was intubated and started on 3 vasopressors for marked distributive shock. ICU team have been asked to provide ventilator management while she requires intubation and ventilation. Hospital and Ventilation Day #2. Overnight, patient's potassium and magnesium levels continued to drop in spite of several doses of potassium and Magnesium. She was also given a bolus dose of lipid emulsion with no continuous infusion. Telemetry reports Multifocal PVC's with rate consistently in the 50's. Her blood pressure stabilized with MAP over 60 on maximum doses of three vasopressors. Her urine output increased dramatically overnight. In addition, nursing staff was unable to pass suction catheter through ET tube after patient vomited the Golytely prep so ET tube was replaced by ED doctor, Dr. Garber. This morning, lab draw was hold due to active infusion of potassium. Last labs showed blood sugar of 451 so her D10 was decreased from 150mls/hr to 100mls/hr. Potassium is still low at 2.4 and Magnesium of 1.4. Patient appears more obtunded with no spontaneous eye or extremity movement. Her pupils are dilated and fixed with no reaction to light. Extremities are cool to touch with very weak peripheral pulses. Exam Vital Signs Vital Sign - Last Date Time Temp Pulse Resp B/P Pulse Ox O2 Delivery O2 Flow Rate FiO2 04/21/17 04:33 36.4 58 15 114/46 100 Mechanical Ventilator 30 04/20/17 13:12 2 Intake and Output 04/20/17 04/20/17 04/21/17 Cumulative From/Thru 15:00 23:00 07:00 04/20/17 12:14 - 04/21/17 06:36 Intake Total 2000 ml 1974 ml 7827 ml 54366 ml Output Total 3300 ml 3300 ml Balance 2000 ml 1974 ml 4527 ml 8501 ml Intake Oral 360 ml 360 ml IV Total 2000 ml 1974 ml 7467 ml 86256 ml Output Urine Total 2150 ml 2150 ml Gastric Drainage Total 650 ml 650 ml Emesis 500 ml 500 ml Exam General: chronically-ill appearance, intubated and obtunded. Head: Normocephalic, atraumatic. External ears without defect. Eyes: Pupils dilated and fixed at 6mm bilaterally, no reaction to light. Anicteric sclerae, conjunctivae moist. Mouth: ET and OG tube in place. Cardiovascular: Bradycardia with regular rhythm. No murmurs, rubs, or gallops appreciated. Weak peripheral pulses. Cap refill ~2-3 sec Pulmonary: Coarse breath sounds with no rales, wheezes, or rhonchi. Abdomen: Decreased bowel tones. Soft, nondistended, no apparent tenderness. Extremities: No clubbing, cyanosis, or edema. Skin: extremities are cool to touch, normal turgor and texture; no rash, ulcers , or subcutaneous nodules appreciated. Neurological: Obtunded. Unable to follow commands or moving extremities. No withdrawal from pain stimuli. Negative Babinski's. No clonus. IVs and Medications Medications Reviewed: Medications were reviewed in detail Lab and Diagnostics Result Diagram: 04/21/17 0655 04/21/17 0430 X-Rays, CTs and MRIs X-RAY CHEST ONE VIEW, PORTABLE IMPRESSION:Status post placement of right internal jugular central venous catheter with the tip projecting in the lower SVC. No pneumothorax. Approved by: Darwin Wsahington M.D. on 04/20/2017 at 12:53 Assessment & Plan 71 year old female with a history of focal epilepsy, COPD, and stroke who was sent to the ED via EMS after intentional overdosing on approximately 800 mg of Amlodipine and was intubated secondary to cardiac arrest s/p resuscitation. Distributive shock secondary to severe Amlodipine toxicity, present on admission , active. -Patient requires maximum doses of 3 vasopressors (Norepi, Dopamine, and Vasopressin) to maintain MAP >65. Will add Dobutamine and decrease the doses of the other 3. -Continue high dose insulin and dextrose ggt. Goal BG around 100-200. -Will reinstitute another bolus of lipid emulsion after lab draw for CMP, Mg, and Phosphorus at 1200. The initial IV bolus should be 1.5ml/kg and followed immediately by a continuous infusion of 0.25mg/kg/min for roughly 10 min following recovery of vital signs. Can repeat 2 more boluses (maximum of 3 boluses) if cardiac stability has not been restored. Monitor vital signs every 15 minutes during the infusion. Lipid rsusciation therapy should be terminated after 1 hour or less if the patient's clinical status permits. Note that lipid emulsion will cause prolonged laboratory interference for over 20 hours. The exact duration of action is controversial (per NCBI). -Per [facility]'s recommendation, IV calcium infusions can he helpful but the response is often short-lived. Note that calcium dosing should be titrated to hemodynamic response rather than serum calcium concentration alone. Will monitor Ca level and repeat Calcium Chloride boluses as needed. -Will Dobutamine for pressure support and decrease the doses on the Norepi, Dopamine, and Vasopressin. -Fentanyl IV pushes [id number] available as needed agitation. -Vigileo monitor in place to closely assess hemodynamic parameters. -Given the patient's worsening neurological status today, will titrate down the Lorazepam drip. -Atropine is rarely effective in serious poisoning, but can use as needed for severe bradycardia. -Patient did not tolerate the charcoal lavage -Amlodipine half-life is about 30-50 hours, thus patient will need to be monitor closely in the next 30 hours. -Patient has vomited with the gastric lavage and given her hypoactive bowel tone , will hold off starting tube feeding at this point. -I discussed with the about the patient status yesterday and he confirmed the full code. However, given the patient's current critical condition on maximum vasopressors, will contact the for goals of care. Cardiac arrest s/p resuscitation present on admission, now intubated. -Secondary to intentional amlodipine overdose. -Oxygenation and ventilation are appropriate on current vent settings. Continue with the current vent setting to maintain SpO2 >/= 93%. -Yesterday ABG showed metabolic acidosis with pH 7.27, pCO2 30.1, pO2 106, bicarb 13.9. -Will need to contact cardiology for transcutaneous pacing if bradycardia worsens. Consent signed by the patient's in the chart. Suspected aspiration pneumonia, active. -WBC increased from 9.7 to 17.7 this morning with Procalcitonin elevated at 5. -CXR this morning showed increasing bibasilar diffuse groundglass opacities. No radiology report yet. -Continue empiric antibiotics with Zoxyn. Day #2. Hypokalemia, present on admission, active. -closely monitor potassium level on insulin drip. Lab values might not be accurate if patient is on lipid emulsion therapy. -Need to maintain Potassium of at least 2.8 and Mg >2. Replete as needed. -Monitor Telemetry and EKG as needed Lactic acidosis, present on admission, active. -continue IVF with D10 at 100mls/hr and trend Lactate. -Will stop NS at this point. -Monitor urine output. Focal epilepsy, chronic, presume stable. -Patient is currently on Lorazepam ggt for agitation as well as seizure prophylaxis. -Levetiracetam level pending. -will consider resuming her home Keppra and Vimpat once patient is more hemodynamically stable. Severe depression with suicidal attempt, present on admission, active. 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 Patient is on Famotidine for GI prophylaxis and Heparin for DVT prophylaxis. Pain Evaluation: Adequate Pain Control GI Prophylaxis: H2 blake VTE Prophylaxis: Sub-Q Heparin (Unfractionated) VTE Mechanical Devices: Intermittant Pneumatic CD Resuscitation Status: CPR: Attempt Resuscitation Attending Statement I have seen and examined this patient with the resident physician. Vital signs , labs, imaging have been reviewed. I agree with the assessment and plan above. Please refer to my separately dictated progress note for any modifications to above. Corie Hardin M.D. Pulmonary and Critical Care medicine Pager [phone] Grabiel Mckeon DO Apr 21, 2017 08:06 Corie Hardin MD Apr 21, 2017 16:09
[2017-04-21] MEDS ORDERED: SODIUM CHLORIDE ONE (08:13)
[2017-04-21] MEDS ORDERED: 0.9% Sodium Chloride 10 mL Inj ONE (08:13)
--- NOTE | 2017-04-21 08:23 | PROCED ---
[address] [address] PROCEDURE NOTE PATIENT: INOCENCIO POWERS : 1945 MR#: [id number] ADMIT: 04/20/2017 JOB ID: [id number] DATE OF SERVICE: 04/20/2017 POSTOPERATIVE DIAGNOSIS(ES): PREOPERATIVE DIAGNOSIS(ES): SURGEON: Jacob Garber MD PROCEDURE: Replacement of failed intubation endotracheal tube. I was called to the bedside by the director of medical services with a patient with a 7.5 tube functioning, but unable to accept a suction catheter. Suction was required after some vomiting episodes. Preparation was made for primary intubation and then a bougie employed to enter the trachea. That entered without difficulty, but another 7.5 tube was then unable to be passed past the cords. The bougie and tube were withdrawn and a #7 tube, previously prepared, was then placed under direct visualization. The resident physician attempted to visualize the cords and was unable. I then placed the 7 tube through the cords under direct visualization and confirmed by end-tidal CO2. Chest x-ray is now pending. The patient is ventilating well with saturations remaining in the 99 range. Patient tolerated the procedure well, and he is returned to the care of the intensive care unit team.
[2017-04-21] MEDS ORDERED: DOBUTamine 500 mg/250 D5W 500,000 MCG in IV Premix 1 EACH IV SCH (08:45)
[2017-04-21] MEDS: LORazepam Inj 100 MG in 0.9% Sodium Chloride 50 ML IV SCH (09:17)
--- NOTE | 2017-04-21 09:35 | CONS ---
[address] [address] CONSULTATION REPORT PATIENT: INOCENCIO POWERS : 1945 MR#: [id number] ADMIT: 04/20/2017 JOB ID: [id number] DATE OF SERVICE: 04/20/2017 PULMONARY CRITICAL CARE CONSULTATION NOTE: The patient is a 71-year-old woman admitted to the ICU for calcium channel blake overdose. Seen in consultation at the request of Dr. Maria for shock and acute respiratory failure. The patient was seen and evaluated with resident physician, Dr. Parvin Dunn. Please refer to her separate detailed note for complete information. The following is a brief attending note. HISTORY OF PRESENT ILLNESS: The patient has the history of longstanding cigarette use, seizure disorder, and apparently came up to her today and told him that she took a whole bottle worth of amlodipine tablets. Subsequently she was brought to the emergency department, intubated, and has been hypotensive. Attempts at giving her charcoal resulted in vomiting and so the charcoal was suctioned out. She is currently severely hypotensive on norepinephrine and dopamine, on the ventilator. PAST MEDICAL HISTORY: Notable for epilepsy, alcohol use, longstanding smoking history which she stopped a few months ago, and anxiety disorder. SOCIAL HISTORY: As above. Longstanding 30-40 pack-year smoking history reportedly. Please note past medical history, social history, family history, and review of systems could not be obtained from the patient because she was intubated. Refer to separate detailed note by resident for additional information. PHYSICAL EXAMINATION: Also refer to separate resident note. Vital signs she is bradycardic in the 40s previously and is currently in the 60s on dopamine. General agitated moving her limbs. Chest clear. Abdomen soft. Extremities no cyanosis or clubbing. LABORATORIES: Reviewed notable for potassium of 2.9. Imaging reviewed. This is preintubation and shows hyperinflated lungs which are clear. ASSESSMENT AND RECOMMENDATIONS: 1. Amlodipine overdose at 11 a.m. today--90 tablets of 5 mg. 2. Shock due to amlodipine overdose. 3. Acute hypoxic respiratory failure. 4. Suspected chronic obstructive pulmonary disease. 5. Severe bradycardia. This 71-year-old woman with prior smoking history presented today with intentional amlodipine overdose, resulting in severe bradycardia, hypotension, and respiratory failure. Activated charcoal was unsuccessful due to vomiting as described above. She is currently getting GoLYTELY through the feeding tube. She has norepinephrine at high dose, dopamine at 10 mcg and an Art-line placed. We are going to add vasopressin increase the dopamine rate for hypotension with maps around 50. Cardiology is aware of her and at this point, recommended against transvenous pacer. She is also getting an insulin infusion, has received multiple doses of Glucagon as well as IV calcium which we will repeat now. At this point, it is really going to be supportive management from a toxicology standpoint. She usually takes Keppra and Vimpat for her seizure disorder, which will hold tonight and probably be consider adding tomorrow. She is getting lorazepam infusion and fentanyl pushes p.r.n. She is on appropriate DVT and GI prophylaxis. She is a FULL CODE. CRITICAL CARE TIME: Sixty (60) minutes.
--- NOTE | 2017-04-21 10:25 | DRSVH ---
PROCEDURE: X-RAY CHEST ONE VIEW, PORTABLE ([id number]) INDICATIONS: tube placement TECHNIQUE: One view of the chest was acquired. COMPARISON: [facility], CR, XR CHEST 1VW (PORTABLE), 04/20/2017, 18:11. FINDINGS: Surgical changes and devices: Endotracheal tube with the tip projecting approximately 4 cm from the c adelita. Enteric tube is present with the tip beyond the gastroesophageal junction. There is a right in travenous catheter with the tip projecting in the lower SVC Lungs and pleura: Possible bilateral small layering pleural effusions solitary indeterminate. There a re increasing bibasilar diffuse groundglass opacities. No definite focal consolidation Mediastinum: Mediastinal contours appear normal. Heart size is normal. Bones and chest wall: No suspicious bony lesions. Overlying soft tissues appear unremarkable. IMPRESSION: Worsening pulmonary edema since earlier same day at 1811 hrs. Cannot exclude small layering bilateral pleural effusions. Support equipment as detailed above. Dictated by: Darwin Washington M.D. on 04/21/2017 at 9:21 Approved by: Darwin Washington M.D. on 04/21/2017 at 9:24
--- NOTE | 2017-04-21 10:52 | NUR ---
NUTRITION ASSESSMENT: ASSESS: Pt is a 71yo F admitted to CCU for amlodipine overdose and respiratory failure. Pt is currently intubated and sedated. Pt experienced multiple episodes of emesis overnight. At this point TF is not being started to monitor GI function. Labs are being replaced. PMHX: epilepsy, COPD, CVA, HTN, depression LABS: Reviewed. Na 122, K 2.4, CO2 7, Bun 7, Glu 451, phos 1.6, Mg 1.4, A1C 6.3 MEDS: Reviewed. Insulin, norepinephrine, Ativan GI: n/v, 0 BM SKIN: no major issues noted CURRENT WTS: 61.4kg, BMI 21.8kg/m2, admit wt: 59kg, IBW 59.1kg DIET: NPO EST. NEEDS: vent Kcals: 1230-1535kcal/day (20-25kcal/kg) Pro: 90-110g/day (1.5-1.8g/kg) Fluids: ~1535-1850ml/day (25-30ml/kg) NUTRITION DIAGNOSIS: 1.) Inadequate oral intake related to decreased ability to consume sufficient energy as evidenced by current NPO status NUTRITION INTERVENTION: 1.) Will continue to monitor NPO/GI status. If pt remains vented and NPO and GI is functional, recommend TF be started. Recommend Pulmocare start at 10ml/hr. If tolerated, advance by 10ml q 6 hrs until reach goal rate of 45ml/hr to provide 1485kcal and 62g pro (100% kcal and 68% pro needs). 2.) Recommend addition of 1 packet prosource TID to better meet protein needs once TF tolerated at goal rate. MONITOR / EVAL: NPO/vent, gi, labs, wt, POC, nutrition status. Will continue to monitor per high nutrition risk guidelines
[2017-04-21] MEDS: Famotidine Inj 50 ML IV SCH ×2 (10:56→20:28)
[2017-04-21] MEDS ORDERED: Calcium GLUCO 10% (Gm) Inj 4 GM in Dextrose 5% 100 ML IV ONE (11:00)
[2017-04-21] MEDS ORDERED: [UNRECOGNIZED DRUG - OTHER] IV SCH (11:30)
[2017-04-21] MEDS ORDERED: Atropine 1 mg/10 mL (Code) Syringe ONE (11:40)
[2017-04-21] MEDS ORDERED: ISOPROTERENOL IV PRN ×2 (11:50)
[2017-04-21] MEDS ORDERED: D5W IV PRN ×2 (11:50)
--- NOTE | 2017-04-21 13:08 | PROG NOTE ---
[address] [address] PROGRESS NOTE PATIENT: INOCENCIO POWERS : 1945 MR#: [id number] ADMIT: 04/20/2017 JOB ID: [id number] DATE: 04/21/2017 PULMONARY CRITICAL CARE PROGRESS NOTE: The patient was seen and evaluated with resident physician, Dr. Mckeon. Please refer to his separate detailed note for complete information. The patient is 71-year-old woman with a longstanding history of prior tobacco use, alcohol use, epilepsy admitted to the hospital with intentional amlodipine overdose, now with refractory shock, bradycardia and respiratory failure. INTERVAL HISTORY: Overnight, the patient has remained bradycardic, borderline low blood pressures on norepinephrine, dopamine, vasopressin at max doses in addition to insulin and dextrose infusions. This morning with the addition of dobutamine, her blood pressure and heart rate both dropped and this had to be stopped. PHYSICAL EXAMINATION: Notable for bradycardia with pulse around 40s to 60 max, BP 96/46. She is on 30% FiO2 on the vent. General: Sometimes moves her arms but does not follow commands. Pupils are dilated at 5 mm each. Chest: Clear to auscultation. LABORATORIES: Reviewed. WBC jumped up to 17.7 from 9.7. Chemistry could be inaccurate due to the recent lipid infusion. Sodium was 122 and potassium was 2.4. Procalcitonin is up to 5.7. ASSESSMENT AND RECOMMENDATIONS: 1. Acute amlodipine overdose on April 20, 2017. 2. Refractory shock. 3. Severe bradycardia. 4. Acute hypoxic respiratory failure. 5. Lactic acidosis. 6. Severe hypokalemia. This 71-year-old woman is critically ill after an amlodipine overdose, getting maximal medical therapy with dopamine infusion, norepinephrine, vasopressin, all maxed out. She is also getting insulin and dextrose infusions and has received lipid emulsion, calcium IV and atropine. Despite all of this, her hemodynamics seem to be worsening. I spoke with Cardiology and they recommended adding isoproterenol infusion and if this fails they would consider putting in a transvenous pacer. I spoke to her , Raffaele, who was at home today and cannot come in and he wants us to do everything possible but I recommended against CPR because she is essentially being constantly resuscitated on the current regimen. I informed him that she may not even survive the next few minutes and he understands and is planning on informing her daughter who lives in [place]. CRITICAL CARE TIME: 90 minutes.
[2017-04-21 13:36] LABS: Magnesium 2.5 mg/dL (1.6-2.6); Phosphorus 7.1 mg/dL (2.5-4.9)
[2017-04-21 13:44] LABS: BASOPHILS % (AUTO) 0.2 % (0-3); EOSINOPHILS % (AUTO) 0.3 % (0-5); MONOCYTES % (AUTO) 6.2 % (4-12); Mean Corpuscular Volume 85.5 fL (81-100); Platelet Count 284 bil/L (150-400)
[2017-04-21] MEDS: CALCIUM CHLORIDE IV SCH ×2 (14:50→20:29)
[2017-04-21] MEDS: DEXTROSE 5% IV SCH ×2 (14:50→20:29)
[2017-04-21] MEDS ORDERED: Heparin 10,000 Unit/1,000 mL NS Premix IV ONE (15:52)
--- NOTE | 2017-04-21 17:02 | DRSVH ---
PROCEDURE: X-RAY CHEST ONE VIEW, PORTABLE ([id number]) INDICATIONS: intubated TECHNIQUE: One view of the chest was acquired. COMPARISON: [facility], CR, XR CHEST 1VW (PORTABLE), 04/20/2017, 18:11. [facility], CR, XR CHEST 1VW (PORTABLE), 04/20/2017, 23:32. FINDINGS: Surgical changes and devices: Stable position of ETT, nasogastric tube and right IJ CVL. Transcutane ous temporary pacer lead projected over the right atrium. Lungs and pleura: Diffuse, widespread bilateral pulmonary interstitial and air space opacities are p resent similar to prior examination. Small pleural effusions noted bilaterally. No pneumothorax. Mediastinum: Mediastinal contours appear normal. Heart size is normal. Mitral annular calcificatio n redemonstrated. Bones and chest wall: No suspicious bony lesions. Overlying soft tissues appear unremarkable. IMPRESSION: 1. Stable support lines and tubes. 2. Pulmonary edema and/or diffuse bilateral pneumonia involving the lung bases not significantly vargas ged. 3. Trace pleural effusions. Dictated by: Gerald Magaña [facility] Interpreted: Lilo Stapleton MD on 04/21/2017 at 11:05 Approved by: Lilo Stapleton M.D. on 04/21/2017 at 17:00
--- NOTE | 2017-04-21 17:12 | NUR ---
Restraints discontinued Pt restraints discontinued at 0730hrs as pt is not making any effort to move
--- NOTE | 2017-04-21 17:13 | NUR ---
Pt daughter called in to speak with Nursing Pt's daughter Elvira, called in after being notified of her mother's admission to CCU. Pt's indicated it was OK to give info to pt's daughter. I updated Elvira on the seriousness of her Mother's condition and she advised me that she was on her way here to see her, travelling from [place].
[2017-04-21] MEDS ORDERED: Sodium Chloride LOK Flush 10 mL Syringe IVFLUSH PRN ×2 (17:15)
--- NOTE | 2017-04-21 17:15 | NUR ---
Pacemaker placed by with rd lab technician assist in pt room Pt had a temp pacemaker placed by Dr. Woo this afternoon. Right groin site is CDI. Pt tolerated the procedure well.
--- NOTE | 2017-04-21 17:51 | NUR ---
Social Work- Initial Assessment Data: See attached CM assessment. Pt is a 71 year old female admitted for amlodipine overdose per H&P. Pt's insurance is [facility] and [facility] Supp. Pt's PCP is TOÑO Kelley. Pt's readmit risk score is 5/8 high risk. Pt has no DPOA on file, pt's NOK is Raffaele Britton [phone]. Daughter Elvira Pacheco [phone] is contact as well. Pt is CCU status sedated and intubated. Pt not able to participate in assessment. Pt's not at bedside. T/C to pt's Raffaele to offer support, explained SW role. Pt resides in [place] with her , independent at baseline. Pt does not drive due to a seizure disorder. Pt uses no DME at baseline. Per , pt has no history of depression or anxiety. Pt's ended conversation abruptly as he was conserving battery on his cell phone and did not want to complete conversation. Unclear if pt has history of HH or SNF, LTC or VA benefits. SW will continue to reach out to offer family support and assist in discharge planning needs as indicated. Assessment: Pt who was previously independent with ADLs. Plan: SW will continue to reach out to offer family support and assist in discharge planning needs as indicated. DANIEL Robbins Addendum: 04/21/17 at 1757 by MADDY GOLDBERG SS Amended: Links added.
--- NOTE | 2017-04-21 18:00 | PCM.PNMED ---
Subjective Date of Service Apr 21, 2017 Subjective Subjective: Due to the patient being intubated and comatose, she was unable to participate in her care at this time Events Overnight: No acute events overnight. ROS: Due to the patient being intubated and comatose, a review of systems was unable to be obtained. Exam Vital Signs Vital Sign - Last Date Time Temp Pulse Resp B/P Pulse Ox O2 Delivery O2 Flow Rate FiO2 04/21/17 11:15 48 80/41 96 30 04/21/17 04:33 36.4 15 Mechanical Ventilator 04/20/17 13:12 2 Intake and Output 04/20/17 04/20/17 04/21/17 Cumulative From/Thru 15:00 23:00 07:00 04/20/17 12:14 - 04/21/17 06:36 Intake Total 2000 ml 1974 ml 7827 ml 26869 ml Output Total 3300 ml 3300 ml Balance 2000 ml 1974 ml 4527 ml 8501 ml Intake Oral 360 ml 360 ml IV Total 2000 ml 1974 ml 7467 ml 27060 ml Output Urine Total 2150 ml 2150 ml Gastric Drainage Total 650 ml 650 ml Emesis 500 ml 500 ml Exam General: No acute distress, intubated and sedated Eyes: Pupils equal round and reactive to light, anicteric sclera, noninjected conjunctiva HENT: Normocephalic atraumatic, moist mucous membranes without central cyanosis , oropharynx clear without purulent exudate Neck: Supple, trachea midline, without thyromegaly or JVD Cardiovascular: Irregularly irregular rate and rhythm with bradycardia, S1-S2 present, without murmurs rubs or gallops noted Lungs: Clear to auscultation bilaterally without wheezing rales or rhonchi Abdomen: Soft, nondistended, tympanic to percussion, normal active bowel sounds , without organomegaly Extremities: No cyanosis clubbing or edema noted, pulses intact bilaterally at dorsalis pedis and radial : Lopez catheter in place Neuro: Unable to assess Psych: Unable to assess IVs and Medications Medications Reviewed: Medications were reviewed in detail Lab and Diagnostics Result Diagram: 04/21/17 1250 04/21/17 1250 X-Rays, CTs and MRIs X-RAY CHEST ONE VIEW, PORTABLE IMPRESSION:Status post placement of right internal jugular central venous catheter with the tip projecting in the lower SVC. No pneumothorax. Approved by: Darwin Washington M.D. on 04/20/2017 at 12:53 Assessment & Plan 71 year old female with a history of focal epilepsy, COPD, and stroke who was sent to the ED via EMS after intentional overdosing on approximately 800 mg of Amlodipine and was intubated secondary to cardiac arrest s/p resuscitation. Distributive shock secondary to severe Amlodipine toxicity, present on admission , active. -Patient currently requiring 3 vasopressors (Norepi, Dopamine, and Vasopressin) to maintain MAP >65. Will add Dobutamine and decrease the doses of the other 3 as tolerated. -Continue high dose insulin and dextrose ggt. Goal BG around 100-200. -Continue lipid emulsions (maximum of 3 boluses) continue until cardiac stability has been restored. Monitor vital signs every 15 minutes during the infusion. Note: lipid emulsion will cause prolonged laboratory interference for over 20 hours. -Continue IV Calcium Chloride boluses as needed. -Fentanyl IV pushes [id number] available as needed agitation. -Vigileo monitor in place to closely assess hemodynamic parameters. -Given the patient's worsening neurological status today, will titrate down the Lorazepam drip. -Atropine as needed for severe bradycardia. Acute hypoxic hypercapnic respiratory failure secondary to Cardiac arrest s/p resuscitation, present on admission, stable. -Patient currently breathing well on current vent settings -ICU team to manage ventilation settings -Consider transcutaneous pacing for bradycardia. Suspected aspiration pneumonia, active. -WBC increased from 9.7 to 17.7 this morning with Procalcitonin elevated at 5. -CXR this morning showed increasing bibasilar diffuse groundglass opacities. -Continue empiric antibiotics with Zoxyn. Hypokalemia, present on admission, active. -closely monitor potassium level on insulin drip. Lab values might not be accurate if patient is on lipid emulsion therapy. -Need to maintain Potassium of at least 2.8 and Mg >2. Repeat as needed. -Monitor Telemetry and EKG as needed Lactic acidosis, present on admission, active. -continue IVF with D10 at 100mls/hr and trend Lactate. -Patient currently up to 11.5 L since admission -Will stop NS at this point. -Monitor urine output. History of Focal epilepsy, chronic, presume stable. -Patient is currently on Lorazepam ggt for agitation as well as seizure prophylaxis. -Levetiracetam level pending. -Consider resuming home Keppra and Vimpat once patient stabilized Severe depression with suicidal attempt, present on admission, active. -Patient with no history of depression per her , but she has been very depressed recently due to the passing of her son-in-law -Psychiatric evaluation prior to discharge Disposition: Prognosis guarded at this time. Assessments for discharge cannot be made until the patient is able to make considerable progress. GI Prophylaxis: H2 blake VTE Prophylaxis: Sub-Q Heparin (Unfractionated) VTE Mechanical Devices: Intermittant Pneumatic CD Resuscitation Status: CPR: Attempt Resuscitation Attending Statement The patient was seen and examined together with Dr. Prasad on 04/21/2017 and I agree with the history, exam and plan as outlined in the note above. . Juan Prasad DO Apr 21, 2017 18:00 Keith Maria MD Apr 22, 2017 16:14 -Levetiracetam level pending. -will consider resuming her home Keppra and Vimpat once patient is more hemodynamically stable. Severe depression with suicidal attempt, present on admission, active. 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 Patient is on Famotidine for GI prophylaxis and Heparin for DVT prophylaxis. GI Prophylaxis: H2 blake VTE Prophylaxis: Sub-Q Heparin (Unfractionated) VTE Mechanical Devices: Intermittant Pneumatic CD Resuscitation Status: CPR: Attempt Resuscitation Juan Prasad DO Apr 21, 2017 18:00
--- NOTE | 2017-04-21 18:45 | NUR ---
P: hemodynamics, Resp, Neuro, Social I,E: Pt has been labile all day today. She remains on dopamine, vasopressin and norepi gtt's to maintain BP. She has ranged from 50 sys today up to 110 sys. See flow sheet for details. Pt was trialed on Isuprel today and this did not seem to have a significant effect on HR or BP. Calcium Gluc was the most effective for BP and HR. and this has been continued as a gtt. Lipids were also given per MD as a 50 cc bolus, I did not appreciate a significant improvement in pt condition with this either. Because of lipids labs were held at 1600. Will draw labs at 2000hrs. Atropine was given 1mg X [address] Hardin for HR and BP, and this did help temporarily. Pacemaker is now insitu and pt is 100% paced at 70b/m. Right groin site is CDI. MA 5, rate 70 asynch. Dobutamine was trialed today, and vasopressin decreased but pt did not tolerate this and she was returned to previous rates on her pressors and the Dobutamine was DC'd. Pt continues to have some UOP from 20 to 30 cc/ hour on average. Pt had been in a junctional rhythm VS 2nd degree block until the pacemaker was placed. She had dropped her HR as low as 30 today. Pt continues on the vent, she does not have a cough, and only scant secretions were suctioned today. Sputum was sent to the lab. Sats have been 97-99% throughout the day. Pt is on insulin at 1unit per kg/hr. D10 is infusing and order is to keep glucose in the 200's. I have titrated the D10 down today to adjust the glucose and last glucose at 1800hrs was 236 down from 300's and 400's. Ativan was decreased from 4mg to 1mg today as suggested by Dr Hardin. Pt has remained un responsive. She does not have a gag, she does not have a cough and her pupils are fixed and dilated. She does not withdraw from pain significantly, rather she sometimes moves the limb being stimulated. Pt's has been updated by phone several times today by and gave consent for the pacemaker via phone. He was able to contact pt's daughter, Elvira and she is currently in the room with other family members and Dr Crawford was able to update them on pt condition and plan of care.
[2017-04-21 20:33] LABS: Magnesium 2.5 mg/dL (1.6-2.6)
--- NOTE | 2017-04-21 21:29 | PCM.ADCARE ---
Advance Care Planning Note Purpose of Encounter: Establish goals of care Parties in Attendance: Patient's daughter Yesika Dr. Giovanny Vazquez Decisional Capacity: Patient's daughter is of completely sound mind and has a good understanding of the patient's current medical condition. Subjective: I arrived to the patient's room to do a night time assessment, and began a conversation with the daughter about goals of care given the patient's grave condition. She states that while the is listed as DPOA, he has alcoholic dementia and has been on a drinking binge since the patient's overdose and is currently out of contact with all family members. The daughter states that her mother would not want to be maintained on mechanical ventilation , and that she has been making gestures for some time expressing a desire to pass away, giving away her possessions ect. The daughter states that if there was no possibility of full recovery, or if the patient would be debilitated after any potential recovery, that she would prefer to withdraw care and allow to patient to pass on as the patient would likely be greatly distressed by debilitation. Objective: The patient has extremely difficult to control Hypotension with a requisite atypical medication regimen, both are likely contributing to profound electrolyte abnormalities that put the patient at great risk of malignant arrhythmia. Should the patient degenerate any further and progress to a potential code situation the likelihood of meaningful recovery thereafter would be exceedingly remote. This was conveyed to the daughter who is acting medical decision maker in the complete absence of the patient's who is of questionable decisional capacity at baseline. Per the daughter she would like to convert the patient over to DNR at this time and avoid any potentially distressing and futile code blue. She will alert close family members and friends as to the patient's grave situation and make a decision with all parties assembled tomorrow about the possibility of compassionate extubation. Goals of Care Determinations: -Patient will be converted to DNR -Family and friends will confer tomorrow AM and discuss the possibility of conversion to comfort care with possible compassionate extubation. -Will continue medical therapy until informed otherwise by family CODE STATUS: DNR Time Spent Adv.Care Planning: Time spent discussing, planning, and coordinating goals of care meeting > 35 minutes. Giovanny Vazquez DO Apr 21, 2017 21:29
[2017-04-22] MEDS: Piperacillin-Tazo 3.375 Gm Inj 3.375 GM in Dextrose 5% Minibag Plus 50 ML IV SCH ×2 (00:20→05:01)
[2017-04-22] MEDS: Chlorhexidine 0.12% 15 mL Oral Solution MUC_MEMBRM SCH ×2 (00:20→03:48)
[2017-04-22 00:22] VITALS: BP 110/79; PULSE 70; RESP 15
[2017-04-22 00:27] VITALS: BP 76/54; O2SAT 94
[2017-04-22] MEDS: Norepinephrine 8,000 mCg/250 mL D5W Premix IV SCH ×2 (01:16→05:07)
[2017-04-22] MEDS: Heparin 5,000 Unit/mL Inj SUBQ SCH (01:16)
[2017-04-22] MEDS: Insulin Human REGular 100 Units/100 mL NS IV SCH ×6 (01:22→04:56)
[2017-04-22] MEDS: DEXTROSE 5% IV PRN ×2 (01:24→05:46)
[2017-04-22] MEDS: CALCIUM CHLORIDE IV PRN ×2 (01:24→05:46)
[2017-04-22] MEDS: Vasopressin Inj 20 UNIT in 0.9% Sodium Chloride 100 ML IV SCH (03:03)
[2017-04-22 03:40] VITALS: BP 92/52; PULSE 70; RESP 15
[2017-04-22 04:36] VITALS: BP 94/71; O2SAT 94
[2017-04-22 04:59] LABS: Mean Corpuscular Hemoglobin 37.2 pg (27.0-35.0); Platelet Count 79 bil/L (150-400)
[2017-04-22 05:21] LABS: BASOPHILS % (AUTO) 2 % (0-3); EOSINOPHILS % (AUTO) 1 % (0-5); MONOCYTES % (AUTO) 3 % (4-12); NEUTROPHILS % (AUTO) 45 % (40-74)
--- NOTE | 2017-04-22 06:33 | NUR ---
Cardiac/End of Life Pt Hypotensive, on levo, vasopressin, dopamine gtt. Pressors titrated to keep map>65, BP labile. Restarted lipids @ 24 ml/hr and continued ca chloride @ 62.5 ml/hr, insulin gtt @ 1 unit/kg/hr and D10 W @ 10 ml/hr , BG 200's. Lopez drained with 30 cc throughout the shift. RASS -5, on vent support, no gag/cough reflex, pupils fixed and dilated, no movements in all extremities. Skin cool and cyanotic, sp02 sensor not reading, hypothermic, placed warming blanket on, tmax 35.7c Notified Dr. Vazquez of lab results k+ 6.2, Na 118, Lactic 3.0. Claire Gomez at bedside. Withdrawl of care on vent: Around 0430 pt having non-sustained, frequent runs of VT and ectopies, maxed on levo, vasopressin and dopamine gtts, sbp dropping in the 40's, Dr. Vazquez notified, then @ bedside. No palpable pulse, nothing audible on doppler. Claire Gomez at bedside. Given morphine 2 mg slow IVP & ativan 2mg (2cc) bolus from IV, off pressors and temp pacer turned off, pt immediately @ 0601. Claire Gomez at bedside & called Raffaele on the phone re: pt . Pt's rings x 4, retrieved by claire Gomez from safe. Notified [facility] of cardiac , referral # [id number]. Pt potential for tissue donor. Instructed claire Gomez to call [employer] ground operations supervisor when arrangement is available.
--- NOTE | 2017-04-22 10:48 | NUR ---
transported to the [facility] 0700 brief report recieved, family grieving at bedside. 0900 family leaves, no home selected. Pt HOB elevated, eyes flushed with saline then taped shut per [facility] Pt transported to the [facility] at 1000.
--- NOTE | 2017-04-22 11:36 | DI96 ---
[address] [address] PERIPHERAL CATHETERIZATION/INTERVENTION REPORT PATIENT: INOCENCIO POWERS : 1945 MR#: [id number] ADMIT: 04/20/2017 JOB ID: [id number] PROCEDURE: Temporary pacemaker insertion. INDICATION: Profound symptomatic bradycardia. PROCEDURAL DETAILS: This procedure was done in the CCU with the help of C-arm fluoroscopy. Access was obtained via right femoral vein and a balloon tipped catheter was then advanced into the right ventricle. Capture thresholds were excellent. We lost capture at 0.5 mV. The patient was left at a lower heart rate of 60 with thresholds of 5 mV. No complications were noted.
--- NOTE | 2017-04-22 19:12 | PCM.DC.MEX ---
Discharge Summary Date of Service Apr 22, 2017 Dates of Hospitalization Date of Hospital Admission Apr 20, 2017 at 15:09 Date of Expiration: Apr 22, 2017 Time of Expiration: 05:55 Providers: Admitting Physician: Keith Maria MD Primary Care Physician: Annalee Martinez Attending Physician: Keith Maria MD Diagnosis at Time of Acute hypoxic hypercapnic respiratory failure Consultations Pulmonology: Dr. Hardin Cardiology: Dr. Woo Procedures XRay, CTs & MRIs X-RAY CHEST ONE VIEW, PORTABLE IMPRESSION:Status post placement of right internal jugular central venous catheter with the tip projecting in the lower SVC. No pneumothorax. Approved by: Darwin Washington M.D. on 04/20/2017 at 12:53 X-RAY CHEST ONE VIEW, PORTABLE IMPRESSION: Support lines as above. Mild increased pulmonary vascularity suggestive of edema. Dictated by: Lilo Stapleton M.D. on 04/20/2017 at 19:29 Approved by: Lilo Stapleton M.D. on 04/20/2017 at 19:30 X-RAY CHEST ONE VIEW, PORTABLE IMPRESSION: Worsening pulmonary edema since earlier same day at 1811 hrs. Cannot exclude small layering bilateral pleural effusions. Support equipment as detailed above. Dictated by: Darwin Washington M.D. on 04/21/2017 at 9:21 Approved by: Darwin Washington M.D. on 04/21/2017 at 9:24 X-RAY CHEST ONE VIEW, PORTABLE IMPRESSION: 1. Stable support lines and tubes. 2. Pulmonary edema and/or diffuse bilateral pneumonia involving the lung bases not significantly changed. 3. Trace pleural effusions. Dictated by: Gerald Magaña [facility] Interpreted: Lilo Stapleton MD on 04/21/2017 at 11: 05 Approved by: Lilo Stapleton M.D. on 04/21/2017 at 17:00 Brief History Taken from H&P completed by Dr. Alcantara: Alaina Vega is a 71 year old female with a history of focal epilepsy, COPD, and stroke who presented to [facility] ED via EMS after intentionally overdosing on approximately 800 mg of Amlodipine around 11:00 am today. The patient was initially seen in the room and rapidly decompensated into a bradycardic arrhythmia leading to cardiac arrest and subsequent cardiopulmonary resuscitation with the Patient intubated and sedated on significant pressor support. The history was obtained through the ED physician's patient interview as well as her by the ICU resident. According to both the ED doctor as well as the the patient was having a normal morning drinking coffee in the garden when she walked up to the and told him that she intentionally took a full bottle of amlodipine that had recently been refilled because she was "tired of being sick." According to the the patient was not having any unusual symptoms however due to concern the patient's called EMS to have her transported to the [facility]. According to the the patient has a history of anxiety and depression however the denies any attempted suicide in the past or any recent suicidal ideation. 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 The describes the seizures as localized to her hands without loss of consciousness and typically occur every 3 weeks with the last one approximately one week ago. The patient is currently prescribed Keppra and Vimpat for her seizure disorder. Per the 's report the patient had recently stopped both smoking and drinking alcohol approximately 3-4 months ago. The patient has a history of chronic alcohol abuse prior to that. Per the ED physicians note he contacted [place] poison control and specifically Dr. Inocente Burnett a power crane operator and was guided to initiate IV insulin therapy with IV dextrose as well as IV calcium chloride. The patient was able to take activated charcoal and an attempt blind the undigested amlodipine. Patient coded twice in the ER due to PEA with noted bradycardic arrhythmia with ROSC after CPR. Given the bradycardic arrhythmia the insulin was briefly held while IV potassium chloride was being infused. She was intubated to protect her airway. Her potassium was initially mildly low and continued to trend down to 2.9. After the patient vomited a significant portion of the activated charcoal. In an attempt to stabilize the patient for transfer to ICU given the patient's emesis and OG was placed and the remaining gastric charcoal with suction. A whole bowel lavage was attempted with GoLYTELY. Dr. Woo from cardiology was also consulted to consider transcutaneous or temporary pacing as needed. Her heart rate remains in the low 40s with hypotension MAP in the 50s. Patient was started on Norepinephrine and Dobutamine for pressure support, with ward clerk Dr Hardin recommending to initiate vasopressin drip. On arrival to the ICU patient's heart rate decreased down to low 30s and thus a dose of Atropin 1mg IV was given. EKG at 1618 showed a sinus rhythm at 74 with incomplete right bundle-branch block and right axis deviation. Hospital Course 71 year old female with a history of focal epilepsy, COPD, and stroke who was sent to the ED via EMS after intentional overdosing on approximately 800 mg of Amlodipine and was intubated secondary to cardiac arrest s/p resuscitation. Family was contacted on the morning of 04/22 due to the patient's worsening status. Attempted to contact the multiple times however was not able to be reached. Based on recommendations of family present patient was compassionately extubated at 5:50 and soon thereafter. Distributive shock secondary to severe Amlodipine toxicity, present on admission , active. -Patient currently requiring 3 vasopressors (Norepi, Dopamine, and Vasopressin) to maintain MAP >65. Will add Dobutamine and decrease the doses of the other 3 as tolerated. -Continue high dose insulin and dextrose ggt. Goal BG around 100-200. -lipid emulsions (maximum of 3 boluses) continue until cardiac stability has been restored. Monitor vital signs every 15 minutes during the infusion. Note: lipid emulsion will cause prolonged laboratory interference for over 20 hours. - IV Calcium Chloride boluses as needed. -Fentanyl IV pushes [id number] available as needed agitation. -Vigileo monitor in place to closely assess hemodynamic parameters. -Given the patient's worsening neurological status today, will titrate down the Lorazepam drip. -Atropine as needed for severe bradycardia. Acute hypoxic hypercapnic respiratory failure secondary to Cardiac arrest s/p resuscitation, present on admission, stable. -Patient currently breathing well on current vent settings -ICU team to manage ventilation settings -Consider transcutaneous pacing for bradycardia. Suspected aspiration pneumonia, active. -WBC increased from 9.7 to 17.7 this morning with Procalcitonin elevated at 5. -CXR this morning showed increasing bibasilar diffuse groundglass opacities. -Continue empiric antibiotics with Zoxyn. Hypokalemia, present on admission, active. -closely monitor potassium level on insulin drip. Lab values might not be accurate if patient is on lipid emulsion therapy. -Need to maintain Potassium of at least 2.8 and Mg >2. Repeat as needed. -Monitor Telemetry and EKG as needed Lactic acidosis, present on admission, active. -continue IVF with D10 at 100mls/hr and trend Lactate. -Patient currently up to 11.5 L since admission -Will stop NS at this point. History of Focal epilepsy, chronic, presume stable. -Patient is currently on Lorazepam ggt for agitation as well as seizure prophylaxis. -Levetiracetam level pending. -Consider resuming home Keppra and Vimpat once patient stabilized Severe depression with suicidal attempt, present on admission, active. -Patient with no history of depression per her , but she has been very depressed recently due to the passing of her son-in-law -Psychiatric evaluation prior to discharge Exam Test 04/20/17 12:10 04/20/17 16:05 04/20/17 17:35 04/20/17 19:30 Hemoglobin A1c 6.3% (4.8-5.6) Digoxin Level < 0.3nG/mL (0.9-2.0) Salicylates Level 25.0ug/mL (30-250) Acetaminophen Level < 15.0ug/mL Rx (10-25) Alcohols < 10mg/dL (0-10) Hold Urine Received (Received) Urine Color Yellow (YELLOW) Urine Appearance Clear (CLEAR,HAZY) Urine pH 6.0 (5.0-8.0) Urine Specific [place] 1.010 (1.003-1.035) Urine Protein 100mg/dL (NEG,TRACE) Urine Glucose (UA) Negativemg/dL (NEGATIVE) Urine Ketones Negativemg/dL (NEGATIVE) Urine Occult Blood Small (NEGATIVE) Urine Nitrite Negative (NEGATIVE) Urine Bilirubin Negative (NEGATIVE) Urine Urobilinogen Normalmg/dL (NORMAL) Urine Leukocyte Esterase Negative (NEGATIVE) Urine RBC 0-2/hpf (0-2) Urine WBC 0-5/hpf (0-5) Urine Epithelial Cells Moderate/hpf (NONE-MOD) Urine Crystals None seen (NONE SEEN) Urine Bacteria Few/hpf (NONE-FEW) Urine Hyaline Casts None/lpf (NONE) Urine Granular Casts None seen (NONE SEEN) Urine Waxy Casts None seen (NONE SEEN) Urine Red Blood Cell Casts None seen (NONE SEEN) Urine White Blood Cell Casts None seen (NONE SEEN) Urine Mucus None seen (None Seen) Urine Trichomonas None seen (NONE SEEN) Urine Yeast None (NONE SEEN) Urinalysis Comment None Urine Culture Reflexed Not indicated Test 04/21/17 04:30 04/21/17 12:50 04/21/17 20:06 04/22/17 04:55 Procalcitonin 5.77ng/mL (0.00-0.08) Phosphorus Level 7.1mg/dL (2.5-4.9) Total Bilirubin 0.3mg/dL (0.0-1.2) Aspartate Amino Transf (AST/SGOT) 55U/L (0-50) Alanine Aminotransferase (ALT/SGPT) 46U/L (0-32) Alkaline Phosphatase 64U/L (25-165) Total Protein 3.9g/dL (6.4-8.4) Albumin 2.0g/dL (3.4-5.0) Sodium Level 118mEq/L (134-144) Potassium Level 6.2mEq/L (3.5-5.2) Chloride Level 96mEq/L (97-108) Carbon Dioxide Level 6mmol/L (18-29) Blood Urea Nitrogen 7mg/dL (8-27) Creatinine 1.23mg/dL (0.57-1.00) Estimat Glomerular Filtration Rate 61mL/min (>59) Glucose Level 399mg/dL (60-99) Calcium Level 16.2mg/dL (8.5-10.1) Magnesium Level 2.5mg/dL (1.6-2.6) White Blood Count 7.7th/mm3 (3.8-10.1) Corrected White Blood Count 7.3th/mm3 (3.8-10.1) Red Blood Count 2.85mil/mm3 (3.90-5.20) Hemoglobin 10.6g/dL (12.0-15.6) Hematocrit 26.8% (35.0-46.0) Mean Corpuscular Volume 94.0fL (81-100) Mean Corpuscular Hemoglobin 37.2pg (27.0-35.0) Mean Corpuscular Hemoglobin Concent 39.6% (32.0-37.0) Red Cell Distribution Width 13.7% (12.3-15.4) Platelet Count 79bil/L (150-400) Neutrophils (%) (Auto) 45% (40-74) Lymphocytes (%) (Auto) 20% (14-46) Monocytes (%) (Auto) 3% (4-12) Eosinophils (%) (Auto) 1% (0-5) Basophils (%) (Auto) 2% (0-3) Band Neutrophils % 28% (1-5) Metamyelocytes % 1% (0-0) Nucleated Red Blood Cells 6/100 WBC (0-24) Hematology Comments Lactic Acid Level 4.9mmol/L (0.4-2.0) Attending Statement The patient was seen and examined together with Dr. Prasad on 04/22/2017 and I agree with the history, exam and plan as outlined in the note above. . copies to: Annalee Martinez Adam J DO Apr 22, 2017 19:12 Keith Maria MD Apr 23, 2017 07:40
== END 2017-04-22 06:01 | disposition expired | DRG 917 ==
LOC: SED 12:15 → CCU 15:09
PROVIDERS: ADMIT Internal Medicine; ATTEND Internal Medicine
PROC: 5A1945Z Respiratory Ventilation, 24-96 Consecutive Hours (ICD-10-PCS; principal; 2017-04-20)
PROC: 5A12012 Performance of Cardiac Output, Single, Manual (ICD-10-PCS; 2017-04-20)
PROC: 0BH17EZ Insertion of Endotracheal Airway into Trachea, Via Natural or Artificial Opening (ICD-10-PCS; 2017-04-20)
PROC: 02HV33Z Insertion of Infusion Device into Superior Vena Cava, Percutaneous Approach (ICD-10-PCS; 2017-04-20)
PROC: 03HY32Z Insertion of Monitoring Device into Upper Artery, Percutaneous Approach (ICD-10-PCS; 2017-04-20)
PROC: 0B21XEZ Change Endotracheal Airway in Trachea, External Approach (ICD-10-PCS; 2017-04-20)
PROC: 3E1H78Z Irrigation of Lower GI using Irrigating Substance, Via Natural or Artificial Opening (ICD-10-PCS; 2017-04-20)
PROC: 4A033R1 Measurement of Arterial Saturation, Peripheral, Percutaneous Approach (ICD-10-PCS; 2017-04-20)
PROC: 3E1G78Z Irrigation of Upper GI using Irrigating Substance, Via Natural or Artificial Opening (ICD-10-PCS; 2017-04-20)
PROC: 5A1223Z Performance of Cardiac Pacing, Continuous (ICD-10-PCS; 2017-04-22)
DX: T46.1X2A Poisoning by calcium-channel blockers, intentional self-harm, initial encounter (principal); J69.0 Pneumonitis due to inhalation of food and vomit; J96.01 Acute respiratory failure with hypoxia; J81.0 Acute pulmonary edema; G92 Toxic encephalopathy; E87.2 Acidosis; G40.109 Localization-related (focal) (partial) symptomatic epilepsy and epileptic syndromes with simple partial seizures, not intractable, without status epilepticus; F32.2 Major depressive disorder, single episode, severe without psychotic features; R57.8 Other shock; J44.9 Chronic obstructive pulmonary disease, unspecified; I46.8 Cardiac arrest due to other underlying condition; E87.6 Hypokalemia; Z87.891 Personal history of nicotine dependence; Z66 Do not resuscitate; Z51.5 Encounter for palliative care